=== PATIENT | female | born 1950 | race Caucasian/White ===

== ENCOUNTER → 2016-12-19 | Outpatient (CLI) | payer OTHER ==
[~2016-12-19] MED LIST: ALDACTONE25 MG PO; AMOXIL (BID DO875 MG PO; ASPIRIN325 MG PO; BACTRIM; BENICAR HCT 201 EACH PO; COREG 3.1253.125 MG PO; CYMBALTA60 MG PO; FEOSOL325 MG PO; K-TAB 10MEQ10 MEQ PO; KLOR-CON; LANTUS (IN100 UNIT/M; LANTUS (IN100 UNIT/M SUB-Q; LASIX80 MG PO; LEVEMIR100 UNIT/1 SUB-Q; LEVOTHROID (S137 MCG PO; LIPITOR40 MG PO; LYRICA300 MG PO; NORVASC10 MG PO; NOVOLOG100 UNIT/M; NOVOLOG100 UNIT/M SUB-Q; PROTONIX40 MG PO; REQUIP4 MG PO; TORSEMIDE; ZAROXOLYN
== END | disposition disaster alternative care site (69) ==
LOC: GAMB 16:00
DX: R53.1 Weakness (principal); I10 Essential (primary) hypertension; E11.9 Type 2 diabetes mellitus without complications; R26.9 Unspecified abnormalities of gait and mobility

== ENCOUNTER → 2017-01-11 | Emergency (ER) | payer OTHER | END | disposition disaster alternative care site (69) | LOC: GAMB 21:42 | DX: T14.90 Injury, unspecified (principal); E11.9 Type 2 diabetes mellitus without complications; I10 Essential (primary) hypertension; V89.2XXA Person injured in unspecified motor-vehicle accident, traffic, initial encounter ==

== ENCOUNTER → 2017-01-15 | Outpatient (CLI) | payer OTHER ==
[2017-01-15 13:51] LABS: BASOPHIL # 0.1 K/uL (0.0-0.2); BASOPHIL % 0.6 %; EOSINOPHIL # 0.2 K/uL (0.0-0.5); HEMATOCRIT 37.4 % (33.0-46.0); HEMOGLOBIN 12.2 g/dL (10.0-15.0); IMMATURE GRANULOCYTE % 0.5 %; LYMPHOCYTE # 1.4 K/uL (0.8-4.0); LYMPHOCYTE % 15.9 %; MCH 28.4 pg (27.0-34.0); MCHC 32.6 gm/dL (32.0-36.5); MONOCYTE # 0.7 K/uL (0.0-1.0); MONOCYTE % 8.4 %; MPV 10.2 fl (9.4-12.4); NEUTROPHIL # (ANC) 6.3 K/uL (1.8-7.8); NEUTROPHIL % 72.6 %; NRBC % 0 /100WBC (0-0.00); PLATELET COUNT 393 K/uL (150-450); RDW-CV 16.7 % (11.9-14.6); WBC 8.7 K/uL (4.0-11.0)
[2017-01-15 14:02] LABS: ALBUMIN 2.6 gm/dL (3.5-5.0); ANION GAP 12.1 (10.0-19.0); CALCIUM 8.8 mg/dL (8.5-10.5); CREATININE 1.9 mg/dL (0.5-1.1); POTASSIUM 3.1 mMol/L (3.7-5.1); TOTAL BILIRUBIN 0.4 mg/dL (0.0-1.5); TOTAL PROTEIN 7.3 g/dL (6.0-8.4)
== END ==
LOC: LHHCN 13:43
PROVIDERS: Internal Medicine Infectious Disease
DX: L97.519 Non-pressure chronic ulcer of other part of right foot with unspecified severity (principal); M19.90 Unspecified osteoarthritis, unspecified site

== ENCOUNTER → 2017-01-22 | Outpatient (CLI) | payer OTHER ==
[2017-01-22 14:32] LABS: BASOPHIL # 0.1 K/uL (0.0-0.2); BASOPHIL % 0.5 %; EOSINOPHIL # 0.2 K/uL (0.0-0.5); EOSINOPHIL % 2.1 %; HEMATOCRIT 36.5 % (33.0-46.0); HEMOGLOBIN 11.8 g/dL (10.0-15.0); IMMATURE GRANULOCYTE % 0.2 %; LYMPHOCYTE # 3.3 K/uL (0.8-4.0); LYMPHOCYTE % 34.6 %; MCH 28.1 pg (27.0-34.0); MCHC 32.3 gm/dL (32.0-36.5); MCV 86.9 fl (83.0-98.0); MONOCYTE % 11.1 %; MPV 10.1 fl (9.4-12.4); NEUTROPHIL # (ANC) 4.8 K/uL (1.8-7.8); NEUTROPHIL % 51.5 %; NRBC % 0 /100WBC (0-0.00); PLATELET COUNT 408 K/uL (150-450); RDW-CV 16.6 % (11.9-14.6); WBC 9.4 K/uL (4.0-11.0)
[2017-01-22 14:46] LABS: ALBUMIN 2.7 gm/dL (3.5-5.0); ANION GAP 10.8 (10.0-19.0); CALCIUM 9.1 mg/dL (8.5-10.5); CREATININE 1.6 mg/dL (0.5-1.1); POTASSIUM 3.8 mMol/L (3.7-5.1); TOTAL PROTEIN 7.4 g/dL (6.0-8.4)
[2017-01-22 14:48] LABS: TOTAL BILIRUBIN 0.3 mg/dL (0.0-1.5)
== END ==
LOC: LHHCN 14:26
PROVIDERS: Internal Medicine Infectious Disease
DX: E11.621 Type 2 diabetes mellitus with foot ulcer (principal); L97.519 Non-pressure chronic ulcer of other part of right foot with unspecified severity

== ENCOUNTER → 2017-01-29 | Outpatient (CLI) | payer OTHER ==
[2017-01-29 14:04] LABS: BASOPHIL % 0.6 %; EOSINOPHIL # 0.1 K/uL (0.0-0.5); EOSINOPHIL % 1.8 %; HEMATOCRIT 33.2 % (33.0-46.0); HEMOGLOBIN 10.9 g/dL (10.0-15.0); IMMATURE GRANULOCYTE % 0.4 %; LYMPHOCYTE % 27.1 %; MCH 27.7 pg (27.0-34.0); MCHC 32.8 gm/dL (32.0-36.5); MCV 84.3 fl (83.0-98.0); MONOCYTE # 0.9 K/uL (0.0-1.0); MPV 9.8 fl (9.4-12.4); NEUTROPHIL # (ANC) 4.1 K/uL (1.8-7.8); NEUTROPHIL % 57.1 %; NRBC % 0 /100WBC (0-0.00); PLATELET COUNT 345 K/uL (150-450); RBC 3.94 M/uL (3.50-5.50); RDW-CV 16.1 % (11.9-14.6); WBC 7.2 K/uL (4.0-11.0)
[2017-01-29 14:21] LABS: ALBUMIN 2.4 gm/dL (3.5-5.0); ANION GAP 12.9 (10.0-19.0); CREATININE 1.6 mg/dL (0.5-1.1); POTASSIUM 3.9 mMol/L (3.7-5.1); TOTAL PROTEIN 7.4 g/dL (6.0-8.4)
[2017-01-29 14:23] LABS: TOTAL BILIRUBIN 0.4 mg/dL (0.0-1.5)
== END ==
LOC: LHHCN 13:59
PROVIDERS: Internal Medicine Infectious Disease
DX: E11.621 Type 2 diabetes mellitus with foot ulcer (principal); L97.519 Non-pressure chronic ulcer of other part of right foot with unspecified severity